=== PATIENT | male | born 1940 | race Asian ===

== ENCOUNTER 2024-02-20 17:53 | Inpatient (IN) | payer MEDICARE, OTHER ==
[~2024-02-20] VITALS: Ht 167.6 cm; Wt 63.0 kg
[2024-02-20] MEDS ORDERED: METF-1211 PO (19:36)
[2024-02-20] MEDS ORDERED: ASPI-1444 PO (19:51)
[2024-02-20] MEDS ORDERED: PROP60CA31 PO (19:51)
[2024-02-20] MEDS ORDERED: ALLO-97 PO (19:51)
[2024-02-20] MEDS ORDERED: TELM1TAB31 PO (19:51)
[2024-02-20] MEDS ORDERED: SITA100 PO (19:51)
[2024-02-20] MEDS ORDERED: NIFE-129 PO (19:51)
[2024-02-20] MEDS ORDERED: HYDR25TA2 PO (19:51)
[2024-02-20] MEDS ORDERED: SIMV-260 PO (19:51)
[2024-02-20] MEDS ORDERED: CALC-1085 PO (19:51)
[2024-02-20 20:26] LABS: APPEARANCE,URINE CLEAR (CLEAR); BILIRUBIN,URINE NEGATIVE (NEGATIVE); COLOR,URINE COLORLESS (YELLOW); GLUCOSE, URINE (UA) NEGATIVE (NEGATIVE); KETONES,URINE NEGATIVE (NEGATIVE); LEUKOCYTE ESTERASE ,URINE NEGATIVE (NEGATIVE); NITRATE,URINE NEGATIVE (NEGATIVE); OCCULT BLOOD,URINE NEGATIVE (NEGATIVE); PH,URINE 7.5 (5.0-8.0); PROTEIN,URINE TRACE mg/dL (NEGATIVE); UROBILINOGEN,URINE <=1.0 mg/dL (<=1.0)
[2024-02-20 20:44] LABS: BASOPHILS % (AUTO) 0.6 % (0.0-2.0); HEMATOCRIT 45.6 % (41-53); HEMOGLOBIN 15.1 g/dL (13.5-17.5); LYMPHOCYTES # (AUTO) 1.8 K/uL (1.0-4.8); LYMPHOCYTES % (AUTO) 20.2 % (22.0-44.0); MEAN CORPUSCULAR HEMOGLOBIN 31.3 pg (26.0-34.0); MEAN CORPUSCULAR HGB CONC 33.1 G/dL (31.0-37.0); MEAN CORPUSCULAR VOLUME 95 fL (80-100); MONOCYTES # (AUTO) 0.8 K/uL (0.1-1.0); MONOCYTES % (AUTO) 9.4 % (2.0-9.0); NEUTROPHILS # (AUTO) 6.1 K/uL (1.8-7.7); NEUTROPHILS % (AUTO) 68.8 % (40.0-70.0); PLATELET COUNT (AUTO) 219 K/uL (150-450); RED BLOOD CELL COUNT(AUTO) 4.81 MIL/uL (4.50-5.90); RED CELL DISTRIBUTION WIDTH 15.6 % (11.5-14.5); WHITE BLOOD COUNT (AUTO) 8.9 K/uL (4.5-11.0)
[2024-02-20] MEDS ORDERED: 0.9% SODIUM CHLORIDE 10 ML SYRINGE IVP PRN (20:45)
[2024-02-20 20:58] LABS: TROPONIN I-HIGH SENSITIVITY 13 ng/L (<76)
[2024-02-20 21:09] LABS: PROTHROMBIN TIME 10.7 SEC (9.4-11.6)
[2024-02-20] MEDS: ALLOPURINOL 100 MG TABLET PO SCH (21:41)
[2024-02-20 21:50] LABS: ANION GAP 9 mmol/L (8-16); CALCIUM, TOTAL 9.9 mg/dL (8.8-10.5); CARBON DIOXIDE 30 mmol/L (22-29); CHLORIDE 97 mmol/L (98-107); CREATININE 1.72 mg/dL (0.60-1.30); GLOMERULAR FILTR. RATE CALC 38 mL/min (>60); GLUCOSE,RANDOM 133 mg/dL (70-110); POTASSIUM 3.8 mmol/L (3.5-5.1); SODIUM SERUM 136 mmol/L (136-145); UREA NITROGEN, BLOOD 28 mg/dL (7-18)
[2024-02-20 21:57] LABS: LACTIC ACID 1.6 mmol/L (0.4-2.0)
[2024-02-20 22:05] LABS: ALANINE AMINOTRANSFERASE 25 U/L (12-78); ALBUMIN 3.9 g/dL (3.4-5.0); ALKALINE PHOSPHATASE 95 U/L (46-116); ASPARTATE AMINOTRANSFERASE 32 U/L (15-37); BILIRUBIN,TOTAL 0.9 mg/dL (0.1-1.0); CREATINE KINASE, TOTAL ONLY 51 U/L (39-308); LACTATE DEHYDROGENASE 162 U/L (85-227); THYROID STIMULATING HORMONE 3.96 uIU/mL (0.36-3.74); TOTAL PROTEIN, SERUM 7.7 g/dL (6.4-8.2)
[2024-02-20 22:29] LABS: CREATININE,URINE RANDOM 37.1 mg/dL (30.0-125.0)
[2024-02-20] MEDS: SODIUM CHLORIDE 0.9% 250 ML IV ONE (22:56)
[2024-02-21 00:20] LABS: TROPONIN I-HIGH SENSITIVITY 15 ng/L (<76)
[2024-02-21] MEDS: ATORVASTATIN CALCIUM 40 MG TABLET PO ONE (00:21)
[2024-02-21] MEDS: ASPIRIN 81 MG CHEWABLE TABLET PO ONE (00:21)
[2024-02-21] MEDS ORDERED: HYDROCHLOROTHIAZIDE 25 MG TABLET PO SCH (09:00)
[2024-02-21] MEDS ORDERED: TELMISARTAN 40 MG TABLET PO SCH (09:00)
[2024-02-21] MEDS ORDERED: SIMVASTATIN 20 MG TABLET PO SCH (09:00)
[2024-02-21 09:03] VITALS: BP 140/73; PULSE 69; RESP 18; TEMP 97.9; O2SAT 99
[2024-02-21] MEDS: NIFEdipine 60 MG ER TABLET PO SCH (09:21)
[2024-02-21] MEDS: PROPRANOLOL HCL 60 MG ER CAPSULE PO SCH (09:22)
[2024-02-21] MEDS: HEPARIN SODIUM,PORCINE 5,000 UNITS/ML VIAL SQ SCH (09:22)
[2024-02-21] MEDS: ASPIRIN 81 MG DR TABLET PO SCH (09:24)
[2024-02-21] MEDS: ACETAMINOPHEN 325 MG TABLET PO PRN (11:02)
[2024-02-21 11:53] VITALS: BP 131/80; PULSE 105; RESP 18; TEMP 97.9; O2SAT 97
[2024-02-21] MEDS ORDERED: INFLUENZA VIRUS VACCINE TVS (6MO+) 2024-25/PF 45 MCG/0.5 ML SYRINGE IM. ONE (15:00)
[2024-02-21 16:02] VITALS: BP 100/58; PULSE 72; RESP 18; TEMP 98.6; O2SAT 98
[2024-02-21 20:22] VITALS: BP 99/67; PULSE 83; RESP 18; TEMP 98; O2SAT 98
[2024-02-21] MEDS: ATORVASTATIN CALCIUM 40 MG TABLET PO SCH (21:16)
[2024-02-21] MEDS: TAMSULOSIN HCL 0.4 MG CAPSULE PO SCH (21:16)
[2024-02-21 23:52] VITALS: BP 109/66; PULSE 80; RESP 18; TEMP 98; O2SAT 98
[2024-02-22] VITALS (7 sets, daily range): BP systolic 78–118; BP diastolic 54–75; PULSE 83–110; RESP 18–19; TEMP 97.6–98.3; O2SAT 96–100
[2024-02-22 07:51] LABS: BASOPHILS % (AUTO) 0.4 % (0.0-2.0); EOSINOPHILS % (AUTO) 0.3 % (1.0-6.0); HEMATOCRIT 44.8 % (41-53); HEMOGLOBIN 15.1 g/dL (13.5-17.5); LYMPHOCYTES # (AUTO) 0.8 K/uL (1.0-4.8); MEAN CORPUSCULAR HEMOGLOBIN 31.7 pg (26.0-34.0); MEAN CORPUSCULAR HGB CONC 33.6 G/dL (31.0-37.0); MEAN CORPUSCULAR VOLUME 94 fL (80-100); MONOCYTES # (AUTO) 0.8 K/uL (0.1-1.0); MONOCYTES % (AUTO) 9.5 % (2.0-9.0); NEUTROPHILS # (AUTO) 6.6 K/uL (1.8-7.7); NEUTROPHILS % (AUTO) 79.8 % (40.0-70.0); PLATELET COUNT (AUTO) 196 K/uL (150-450); RED BLOOD CELL COUNT(AUTO) 4.75 MIL/uL (4.50-5.90); RED CELL DISTRIBUTION WIDTH 15.7 % (11.5-14.5); WHITE BLOOD COUNT (AUTO) 8.2 K/uL (4.5-11.0)
[2024-02-22 08:01] LABS: CALCIUM, TOTAL 8.9 mg/dL (8.8-10.5); CREATININE 1.61 mg/dL (0.60-1.30); MAGNESIUM 1.6 mg/dL (1.80-2.40); POTASSIUM 3.7 mmol/L (3.5-5.1)
[2024-02-22 08:19] LABS: FREE T4 (FREE THYROXINE) 1.56 ng/dL (0.76-1.46)
[2024-02-22] MEDS ORDERED: MAGNESIUM SULFATE 4 GM/WATER 100 ML IV PRN (13:00)
[2024-02-22] MEDS ORDERED: MAGNESIUM SULFATE 2 GM/WATER 50 ML IV PRN (13:00)
[2024-02-22] MEDS: SODIUM CHLORIDE 0.9% 1,000 ML IV ONE (13:24)
[2024-02-22] MEDS: DOCUSATE SODIUM 100 MG CAPSULE PO SCH (13:24)
[2024-02-22 13:48] LABS: ALBUMIN 3.7 g/dL (3.4-5.0)
[2024-02-22] MEDS: MAGNESIUM OXIDE 400 MG TABLET PO PRN (20:27)
[2024-02-23] VITALS (10 sets, daily range): BP systolic 87–122; BP diastolic 55–79; PULSE 66–107; RESP 17–18; TEMP 97.6–101.4; O2SAT 97–98
[2024-02-23 07:18] LABS: BASOPHILS % (AUTO) 0.5 % (0.0-2.0); EOSINOPHILS % (AUTO) 0.6 % (1.0-6.0); HEMOGLOBIN 13.5 g/dL (13.5-17.5); LYMPHOCYTES # (AUTO) 0.9 K/uL (1.0-4.8); LYMPHOCYTES % (AUTO) 13.4 % (22.0-44.0); MEAN CORPUSCULAR HEMOGLOBIN 31.8 pg (26.0-34.0); MEAN CORPUSCULAR HGB CONC 33.7 G/dL (31.0-37.0); MEAN CORPUSCULAR VOLUME 94 fL (80-100); MONOCYTES # (AUTO) 0.6 K/uL (0.1-1.0); NEUTROPHILS # (AUTO) 4.9 K/uL (1.8-7.7); NEUTROPHILS % (AUTO) 75.5 % (40.0-70.0); PLATELET COUNT (AUTO) 168 K/uL (150-450); RED BLOOD CELL COUNT(AUTO) 4.24 MIL/uL (4.50-5.90); RED CELL DISTRIBUTION WIDTH 15.4 % (11.5-14.5); WHITE BLOOD COUNT (AUTO) 6.5 K/uL (4.5-11.0)
[2024-02-23 07:24] LABS: CALCIUM, TOTAL 8.4 mg/dL (8.8-10.5); CREATININE 1.58 mg/dL (0.60-1.30); POTASSIUM 3.7 mmol/L (3.5-5.1)
[2024-02-23] MEDS: CLOPIDOGREL BISULFATE 75 MG TABLET PO SCH (08:50)
[2024-02-23] MEDS: PROPRANOLOL HCL 80 MG PO SCH (08:51)
[2024-02-23] MEDS ORDERED: PROPRANOLOL HCL 80 MG PO SCH (09:00)
[2024-02-23 09:46] LABS: CHOL/HDL RATIO 1.4 (4.2-7.3)
[2024-02-23] MEDS: SODIUM CHLORIDE 0.9% 250 ML IV ONE ×2 (09:53→16:07)
[2024-02-23] MEDS ORDERED: PROP80CA41 PO (11:50)
[2024-02-23] MEDS ORDERED: DUTA0.5C38 PO (11:50)
[2024-02-23] MEDS ORDERED: CLOP75TA60 PO (11:50)
[2024-02-23] MEDS ORDERED: APIX2.5T PO (11:50)
[2024-02-23] MEDS ORDERED: ATOR40TA71 PO (11:50)
[2024-02-23] MEDS: PIPERACILLIN SODIUM/TAZOBACTAM 2.25 GM in DEXTROSE 5%-WATER 50 ML IV SCH (18:33)
[2024-02-24] VITALS: BP 113/69; PULSE 83; RESP 17; TEMP 97.6; O2SAT 98
[2024-02-24 02:05] LABS: APPEARANCE,URINE CLEAR (CLEAR); BILIRUBIN,URINE NEGATIVE (NEGATIVE); COLOR,URINE LIGHT YELLOW (YELLOW); GLUCOSE, URINE (UA) NEGATIVE (NEGATIVE); KETONES,URINE NEGATIVE (NEGATIVE); LEUKOCYTE ESTERASE ,URINE NEGATIVE (NEGATIVE); NITRATE,URINE NEGATIVE (NEGATIVE); OCCULT BLOOD,URINE NEGATIVE (NEGATIVE); PROTEIN,URINE 30-70 mg/dL (NEGATIVE); SPECIFIC GRAVITIY, URINE 1.019 (1.003-1.030); UROBILINOGEN,URINE <=1.0 mg/dL (<=1.0)
[2024-02-24 04:00] VITALS: BP 127/79; PULSE 70; RESP 18; TEMP 98.1; O2SAT 96
[2024-02-24 06:55] LABS: BASOPHILS % (AUTO) 0.3 % (0.0-2.0); EOSINOPHILS % (AUTO) 0.5 % (1.0-6.0); HEMATOCRIT 40.6 % (41-53); HEMOGLOBIN 13.4 g/dL (13.5-17.5); LYMPHOCYTES # (AUTO) 1.2 K/uL (1.0-4.8); LYMPHOCYTES % (AUTO) 9.8 % (22.0-44.0); MEAN CORPUSCULAR HEMOGLOBIN 31.1 pg (26.0-34.0); MEAN CORPUSCULAR VOLUME 94 fL (80-100); MONOCYTES # (AUTO) 0.9 K/uL (0.1-1.0); MONOCYTES % (AUTO) 7.5 % (2.0-9.0); NEUTROPHILS # (AUTO) 9.9 K/uL (1.8-7.7); NEUTROPHILS % (AUTO) 81.9 % (40.0-70.0); PLATELET COUNT (AUTO) 158 K/uL (150-450); RED CELL DISTRIBUTION WIDTH 15.7 % (11.5-14.5); WHITE BLOOD COUNT (AUTO) 12.1 K/uL (4.5-11.0)
[2024-02-24 07:12] LABS: CALCIUM, TOTAL 8.2 mg/dL (8.8-10.5); CREATININE 1.38 mg/dL (0.60-1.30); MAGNESIUM 2.1 mg/dL (1.80-2.40); POTASSIUM 3.7 mmol/L (3.5-5.1)
[2024-02-24 09:52] VITALS: BP 122/70; PULSE 78; RESP 18; TEMP 98.6; O2SAT 98
[2024-02-24 11:00] VITALS: BP 113/74; PULSE 84; RESP 18; TEMP 98.4; O2SAT 97
[2024-02-24 12:00] LABS: INFLUENZA A-RTPCR,COMBO NEGATIVE (NEGATIVE); INFLUENZA B-RTPCR,COMBO NEGATIVE (NEGATIVE); SARS COVID19 RTPCR, COMBO NEGATIVE (NEGATIVE)
[2024-02-24 12:51] LABS: RESPIRATORY SYNCYTIAL VRS-PCR POSITIVE (NEGATIVE)
[2024-02-24] MEDS ORDERED: AZIT-167 PO (14:33)
[2024-02-24] MEDS: BISACODYL 10 MG RECTAL RECTAL SUPPOSITORY PR PRN (15:45)
[2024-02-24 15:46] VITALS: BP 118/72; PULSE 82; RESP 18; TEMP 98; O2SAT 96
== END 2024-02-24 17:00 | disposition home or self-care (01) | DRG 64 ==
LOC: EMS 17:53 → EDH 02-21 08:15 → 5S 02-21 08:25
PROVIDERS: ADMIT Internal Medicine; ATTEND Internal Medicine
DX: I63.9 Cerebral infarction, unspecified (principal); A41.89 Other specified sepsis; N17.9 Acute kidney failure, unspecified; I10 Essential (primary) hypertension; E03.9 Hypothyroidism, unspecified; E11.9 Type 2 diabetes mellitus without complications; I48.91 Unspecified atrial fibrillation; B97.4 Respiratory syncytial virus as the cause of diseases classified elsewhere; N40.0 Benign prostatic hyperplasia without lower urinary tract symptoms; Z20.822 Contact with and (suspected) exposure to COVID-19; E78.5 Hyperlipidemia, unspecified; Z79.899 Other long term (current) drug therapy; Z85.038 Personal history of other malignant neoplasm of large intestine; Z79.82 Long term (current) use of aspirin; Z79.84 Long term (current) use of oral hypoglycemic drugs; Z87.891 Personal history of nicotine dependence; Z90.49 Acquired absence of other specified parts of digestive tract; Z79.02 Long term (current) use of antithrombotics/antiplatelets
CPT/HCPCS: 0241U; 70450; 70544; 70547; 70551; 71045; 71250; 72192; 74150; 76770; 80048; 80053; 80061; 81003; 82040; 82550; 82570; 83605; 83615; 83735; 83880; 84145; 84300; 84439; 84443; 84484; 85025; 85610; 85730; 87040; 92610; 93005; 93306; 97116; 97162; 97166; 97530; 97535; 99291; G0238; J1644; J2543; J7030; J7050; J7060; 36415-L1; 36415-TC

== ENCOUNTER → 2024-07-03 | Outpatient (CLI) | payer OTHER ==
[~2024-07-03] MED LIST: ALLO-97 PO; APIX2.5T PO; ATOR40TA71 PO; DUTA0.5C38 PO; [UNRECOGNIZED DRUG - CODE] PO
[2024-07-03 11:33] LABS: APPEARANCE,URINE CLEAR (CLEAR); BILIRUBIN,URINE NEGATIVE (NEGATIVE); COLOR,URINE YELLOW (YELLOW); GLUCOSE, URINE (UA) NEGATIVE (NEGATIVE); KETONES,URINE NEGATIVE (NEGATIVE); LEUKOCYTE ESTERASE ,URINE NEGATIVE (NEGATIVE); NITRATE,URINE NEGATIVE (NEGATIVE); OCCULT BLOOD,URINE SMALL (NEGATIVE); PROTEIN,URINE 30-70 mg/dL (NEGATIVE); SPECIFIC GRAVITIY, URINE 1.016 (1.003-1.030); UROBILINOGEN,URINE <=1.0 mg/dL (<=1.0)
[2024-07-03 12:01] LABS: BACTERIA,URINE None Seen /HPF (None Seen); RBC,URINE 0-2 /HPF (0-2); WBC,URINE None Seen /HPF (0-5)
== END | disposition home or self-care (01) ==
LOC: LABMN 10:48
PROVIDERS: ATTEND Chiropractor
DX: E11.9 Type 2 diabetes mellitus without complications (principal)
CPT/HCPCS: 81001

== ENCOUNTER → 2024-11-11 | Outpatient (CLI) | payer MEDICARE, OTHER ==
[~2024-11-11] VITALS: Ht 167.6 cm; Wt 61.1 kg
[~2024-11-11] MED LIST changes: +ASPI-1450 PO; +CLOP75TA83 PO; +EMPA10TA3 PO; +METF-1185 PO; +OLME20TA73 PO; +PROP60CA31 PO
[2024-11-11 11:36] VITALS: BP 143/94; PULSE 63; RESP 18; TEMP 98.1; O2SAT 96
== END | disposition home or self-care (01) ==
LOC: SRCNTR 11:04
PROVIDERS: ATTEND Internal Medicine
DX: I12.9 Hypertensive chronic kidney disease with stage 1 through stage 4 chronic kidney disease, or unspecified chronic kidney disease (principal); E11.22 Type 2 diabetes mellitus with diabetic chronic kidney disease; N18.30 Chronic kidney disease, stage 3 unspecified; I48.91 Unspecified atrial fibrillation; I63.9 Cerebral infarction, unspecified; M10.9 Gout, unspecified; R32 Unspecified urinary incontinence; Z79.02 Long term (current) use of antithrombotics/antiplatelets; Z79.82 Long term (current) use of aspirin; Z79.84 Long term (current) use of oral hypoglycemic drugs; Z79.899 Other long term (current) drug therapy; Z85.038 Personal history of other malignant neoplasm of large intestine; Z86.73 Personal history of transient ischemic attack (TIA), and cerebral infarction without residual deficits
CPT/HCPCS: G0463